=== PATIENT | male | born 1935 | race Caucasian/White ===

== ENCOUNTER → 2018-06-29 | Outpatient (CLI) | payer MEDICARE | LOC: M RAD 13:02 | DX: C64.9 Malignant neoplasm of unspecified kidney, except renal pelvis (principal); C78.02 Secondary malignant neoplasm of left lung; C78.01 Secondary malignant neoplasm of right lung | CPT/HCPCS: 71250 ==

== ENCOUNTER → 2018-08-21 | Outpatient (REF) | payer MEDICARE ==
[~2018-08-21] MED LIST: ALLO10TA PO; ATOR1TAB21 PO; FOLI1TAB11 PO; FURO40TA2 PO; LISI2.5T5 PO; METO1TAB32 PO; PANT-23 PO; XARE15TA PO
[2018-08-21 13:01] LABS: APPEARANCE, URINE CLEAR (CLEAR); BACTERIA, URINE AUTO NEGATIVE (NEGATIVE); BILIRUBIN, URINE AUTO NEGATIVE (NEGATIVE); BLOOD, URINE BLOOD NEGATIVE (NEGATIVE); COLOR, URINE STRAW (YELLOW); GLUCOSE, URINE (UA) AUTO NEGATIVE (NEGATIVE); KETONE, URINE AUTO NEGATIVE (NEGATIVE); LEUKOCYTE ESTERASE, URINE AUTO NEGATIVE (NEGATIVE); NITRITE, URINE AUTO NEGATIVE (NEGATIVE); PROTEIN, URINE AUTO NEGATIVE (NEGATIVE); RBC, URINE AUTO 0 /HPF (0-3); SPECIFIC GRAVITY URINE AUTO 1.005 (1.002-1.035); SQUAMOUS EPITHELIAL CELL UR AU 0 /HPF (0-6); UROBILINOGEN, URINE AUTO 0.2 mg/dL (0.0-2.0); WBC, URINE AUTO 0 /HPF (0-3)
[2018-08-21 13:13] LABS: BASO # 0.1 10^3/uL (0.0-0.2); BASO % 0.6 % (0.0-1.0); EOS # 0.1 10^3/uL (0.0-0.50); EOS % 1.6 % (0.0-3.0); HEMATOCRIT 39.2 % (42.0-52.0); HEMOGLOBIN 12.7 g/dl (13.5-17.5); LYMPH # 0.6 10^3/uL (1.5-4.5); MEAN CORPUSCULAR HEMOGLOBIN 33.2 pg (27.0-33.0); MEAN CORPUSCULAR HGB CONC 32.4 g/dl (32.0-36.5); MEAN CORPUSCULAR VOLUME 102.3 fl (80.0-96.0); MONO # 0.7 10^3/uL (0.0-0.8); MONO % 7.8 % (0.0-5.0); NEUTROPHILS # 7.4 10^3/uL (1.8-7.7); NEUTROPHILS % 82.7 % (36.0-66.0); PLATELET COUNT, AUTOMATED 225 10^3/uL (150-450); RED BLOOD COUNT 3.83 10^6/uL (4.30-6.10); WHITE BLOOD COUNT 8.9 10^3/uL (4.0-10.0)
[2018-08-21 13:40] LABS: ALBUMIN 3.7 GM/DL (3.2-5.2); ALT/SGPT 22 U/L (12-78); BILIRUBIN,TOTAL 0.6 MG/DL (0.2-1.0); BLOOD UREA NITROGEN 33 MG/DL (7-18); CALCIUM LEVEL 8.9 MG/DL (8.8-10.2); CARBON DIOXIDE LEVEL 32 MEQ/L (21-32); CHLORIDE LEVEL 100 MEQ/L (98-107); CHOLESTEROL LEVEL 149 MG/DL (<200); CREATININE FOR GFR 1.67 MG/DL (0.70-1.30); FERRITIN 120 NG/ML (26-388); FOLATE > 24.0 NG/ML; FREE T4 0.79 NG/DL (0.76-1.46); GLOMERULAR FILTRATION RATE 41.9 (>35); GLUCOSE, FASTING 90 MG/DL (70-100); HDL CHOLESTEROL 49 MG/DL (>40); IRON (FE) 54 UG/DL (65-175); LDL CHOLESTEROL 85 MG/DL (<100); MAGNESIUM LEVEL 2.3 MG/DL (1.8-2.4); NON-HDL-C 100 MG/DL; PERCENT SATURATION 19.5 % (19.7-50.0); POTASSIUM SERUM 4.7 MEQ/L (3.5-5.1); SODIUM LEVEL 138 MEQ/L (136-145); TOTAL 25(OH) VITAMIN D 23.1 NG/ML (30.0-100.0); TOTAL IRON BINDING CAPACITY 277 UG/DL (250-450); TOTAL PROTEIN 7.3 GM/DL (6.4-8.2); TRIGLYCERIDES LEVEL 76 MG/DL (<150); VITAMIN B12 LEVEL 541 PG/ML
[2018-08-21 14:06] LABS: CREATININE, URINE < 13.0 MG/DL; MALB URINE SIEMENS 5.9 MG/L
== END ==
LOC: M SFHCADAM 10:54
PROVIDERS: ATTEND Physician Assistant Medical
DX: I25.810 Atherosclerosis of coronary artery bypass graft(s) without angina pectoris (principal); I11.9 Hypertensive heart disease without heart failure; C64.1 Malignant neoplasm of right kidney, except renal pelvis; R53.82 Chronic fatigue, unspecified
CPT/HCPCS: 80053; 80061; 81001; 82043; 82306; 82607; 82728; 82746; 83550; 83735; 84439; 84443; 85025; G0463

== ENCOUNTER → 2018-10-04 | Outpatient (CLI) | payer MEDICARE ==
--- NOTE | 2018-10-04 11:54 | REP ---
CT of the chest without IV contrast: Comparison is 06/29. On the . There are multiple lung nodules bilaterally, not significantly changed. There is a right pleural effusion, not significantly changed. There is a small left pleural effusion, unchanged. There is atelectasis of the right lower lobe adjacent to the effusion, not significantly changed. There are enlarged intestinal nodes, unchanged. There are no lytic, blastic or destructive skeletal changes. There is degenerative disc disease throughout the thoracic spine. Impression: No significant interval change. Electronically Signed by Grady Moody MD 10/04/2018 11:45 A
--- NOTE | 2018-10-04 12:11 | REP ---
CT of the abdomen pelvis without IV or bowel contrast: Comparison is 06/29/2018. There is a small to moderate right pleural effusion, unchanged. There is atelectasis of the lower lobe of the right lung adjacent to the effusion. There is a small left pleural effusion, unchanged. There are numerous low density lesions throughout both right and left lobes of the liver compatible with metastases, not significantly changed. There are surgical clips in the gallbladder fossa, unchanged. The stomach, duodenal bulb and descending portion of the duodenal loop are dilated. This is unchanged. The transverse duodenum is nondilated. This is unchanged. These findings may represent stricture or adhesion of the descending limb of the duodenum. The unenhanced pancreas and spleen are unchanged. The right and left adrenals are unremarkable and unchanged. There is no identifiable right kidney. There are tiny high density high densities in the right renal fossa. These could surgical clips or possibly calcifications in a markedly atrophied right kidney. The appearance is unchanged. The unenhanced left kidney is unremarkable and unchanged. The abdominal aorta is tortuous but otherwise unremarkable. There is no retroperitoneal adenopathy or mass. The bowel and mesentery are otherwise unchanged and unremarkable. Pelvis: There are bilateral hip arthroplasties resulting in beam hardening and obscuration of the structures in the inferior pelvis. The bowel loops in the upper pelvis are unremarkable. No adenopathy is identified in the upper pelvis. Impression: Question adhesion/stricture in the descending loop of the duodenum as described, unchanged. Multiple hepatic metastases, unchanged. Findings in the right renal fossa that could represent nephrectomy for markedly atrophic right kidney. This is unchanged. Half There are no lytic, blastic or destructive skeletal changes. This is unchanged. There are bilateral pleural effusions, unchanged. There is atelectasis of the right lower lobe adjacent to the effusion, unchanged. Electronically Signed by Grady Moody MD 10/04/2018 12:01 P
== END ==
LOC: M RAD 10:23
PROVIDERS: ATTEND Internal Medicine Hematology & Oncology
DX: C64.9 Malignant neoplasm of unspecified kidney, except renal pelvis (principal); C78.7 Secondary malignant neoplasm of liver and intrahepatic bile duct; J90 Pleural effusion, not elsewhere classified; R91.8 Other nonspecific abnormal finding of lung field; M51.34 Other intervertebral disc degeneration, thoracic region; J98.11 Atelectasis

== ENCOUNTER → 2018-11-03 | Outpatient (CLI) | payer MEDICARE ==
[~2018-11-03] MED LIST changes: +LISI-1046 PO; -LISI2.5T5 PO
--- NOTE | 2018-11-03 12:47 | REP ---
Chest two views HISTORY: Cough Comparison: CT chest 10/04/2018 Multiple parenchymal nodules are present in the lungs. There is blunting of the right costophrenic angle due to a small pleural effusion. The cardiac silhouette is enlarged. The pulmonary vasculature is normal in appearance. The bony structures are osteopenic. IMPRESSION: 1. There are multiple parenchymal nodules in the lungs unchanged compared to the recent CT examination. 2. Small right pleural effusion decreased compared to the recent CT examination. Electronically Signed by Scar Cox MD 11/03/2018 12:38 P
== END ==
LOC: M ADAMS 09:03
PROVIDERS: ATTEND Physician Assistant Medical
DX: J98.4 Other disorders of lung (principal); J90 Pleural effusion, not elsewhere classified; R05 Cough
CPT/HCPCS: 71046; G0463

== ENCOUNTER → 2018-11-24 | Outpatient (REF) | payer MEDICARE ==
[2018-11-24 19:34] LABS: BASO % 0.4 % (0.0-1.0); EOS # 0.2 10^3/uL (0.0-0.50); EOS % 2.1 % (0.0-3.0); HEMATOCRIT 39.5 % (42.0-52.0); HEMOGLOBIN 12.5 g/dl (13.5-17.5); LYMPH # 0.7 10^3/uL (1.5-4.5); LYMPH % 9.5 % (24.0-44.0); MEAN CORPUSCULAR HGB CONC 31.6 g/dl (32.0-36.5); MONO # 0.7 10^3/uL (0.0-0.8); MONO % 9.7 % (0.0-5.0); NEUTROPHILS # 5.5 10^3/uL (1.8-7.7); PLATELET COUNT, AUTOMATED 199 10^3/uL (150-450); RED BLOOD COUNT 3.91 10^6/uL (4.30-6.10); WHITE BLOOD COUNT 7.1 10^3/uL (4.0-10.0)
[2018-11-24 20:56] LABS: ALBUMIN 3.7 GM/DL (3.2-5.2); BILIRUBIN,TOTAL 0.7 MG/DL (0.2-1.0); CALCIUM LEVEL 8.9 MG/DL (8.8-10.2); CREATININE FOR GFR 1.45 MG/DL (0.70-1.30); FREE T4 1.15 NG/DL (0.76-1.46); GLOMERULAR FILTRATION RATE 49.2 (>35); POTASSIUM SERUM 4.5 MEQ/L (3.5-5.1); THYROID STIMULATING HORMONE 4.37 uIU/ML (0.358-3.740)
== END ==
LOC: M SFHCADAM 15:57
PROVIDERS: ATTEND Physician Assistant Medical
DX: E03.9 Hypothyroidism, unspecified (principal); I25.810 Atherosclerosis of coronary artery bypass graft(s) without angina pectoris; I48.2 Chronic atrial fibrillation; I35.0 Nonrheumatic aortic (valve) stenosis
CPT/HCPCS: 80053; 84439; 84443; 85025; G0463

== ENCOUNTER → 2019-01-26 | Outpatient (CLI) | payer MEDICARE ==
[~2019-01-26] MED LIST changes: +LEVO25TA5 PO
--- NOTE | 2019-01-26 14:48 | REP ---
CT CHEST WITHOUT IV CONTRAST: CT chest performed without IV contrast. Sagittal and coronal reconstruction images are performed. Comparison made with prior studies, most recently 10/04/2018. Once again, there are multiple bilateral pulmonary nodules present. The vast majority have remained stable in size. One small nodule in the right upper lobe has slightly increased in size. Approximately six of the left lower lobe nodules have slightly increased in size. Consolidative opacity in the inferior aspect of the right lower lobe is essentially stable. There is mild mucus material in the right mainstem bronchus, which has improved. There is a stable small right pleural effusion. Several small subcentimeter mediastinal lymph nodes are stable. There is no pericardial effusion. There is atherosclerotic calcification of the thoracic aorta with mild dilatation of the ascending thoracic aorta at 4.2 cm, unchanged. There is mild cardiomegaly. IMPRESSION: Multiple bilateral pulmonary nodules have, for the most part, remained stable. One right upper lobe nodule and approximately six left lower lobe nodules have slightly increased in size. There is stable consolidative opacity in the right lower lobe as well as a stable small right pleural effusion. Electronically Signed by Grady Pulido MD 01/26/2019 07:34 P
--- NOTE | 2019-01-26 15:07 | REP ---
CT ABDOMEN AND PELVIS WITHOUT CONTRAST: CT abdomen and pelvis performed without oral or IV contrast. Sagittal and coronal reconstruction images performed. Comparison made with prior study of 10/04/2018. The liver demonstrates multiple innumerable nodules which have increased in size since the prior study, some becoming confluent, particularly in the posterior right lobe of the liver. The patient has had a prior cholecystectomy. The spleen is grossly unremarkable. The adrenal glands are thickened and unchanged. The pancreas is grossly unremarkable. The left kidney is grossly unremarkable. Ill-defined soft tissue is seen in the right renal fossa extending into the right paravertebral soft tissues, unchanged. No adenopathy is seen. No bowel wall thickening is seen. There is no free air or free fluid. There is sigmoid diverticulosis without acute diverticulitis. Diverticula are also seen extending throughout the left colon. There is no gross pelvic mass, but the evaluation of the pelvic structures due to steak artifact from bilateral metallic hip prostheses. No definite bone lesion is seen of the visualized osseous structures. IMPRESSION: Increased number and size of multiple metastatic nodules throughout the liver. No change in ill-defined soft tissue density in the right renal fossa extending into the right paravertebral soft tissues. No other new findings. Electronically Signed by Grady Pulido MD 01/26/2019 07:35 P
== END ==
LOC: M RAD 13:26
PROVIDERS: ATTEND Internal Medicine Hematology & Oncology
DX: C64.1 Malignant neoplasm of right kidney, except renal pelvis (principal)

== ENCOUNTER → 2019-02-01 | Outpatient (REF) | payer MEDICARE ==
[2019-02-01 12:43] LABS: BASO % 0.4 % (0.0-1.0); EOS # 0.1 10^3/uL (0.0-0.50); EOS % 0.9 % (0.0-3.0); HEMATOCRIT 41.4 % (42.0-52.0); HEMOGLOBIN 13.3 g/dl (13.5-17.5); LYMPH # 0.8 10^3/uL (1.5-4.5); LYMPH % 7.7 % (24.0-44.0); MEAN CORPUSCULAR HGB CONC 32.1 g/dl (32.0-36.5); MEAN CORPUSCULAR VOLUME 99.8 fl (80.0-96.0); MONO % 9.8 % (0.0-5.0); NEUTROPHILS % 80.9 % (36.0-66.0); PLATELET COUNT, AUTOMATED 206 10^3/uL (150-450); RED BLOOD COUNT 4.15 10^6/uL (4.30-6.10); WHITE BLOOD COUNT 9.8 10^3/uL (4.0-10.0)
== END ==
LOC: M SFHCPLAZ 11:16
PROVIDERS: ATTEND Physician Assistant Medical
DX: R53.82 Chronic fatigue, unspecified (principal)

== ENCOUNTER 2019-02-23 11:33 | Emergency (ER) | payer MEDICARE ==
[~2019-02-23] VITALS: Ht 175.3 cm; Wt 74.5 kg
[2019-02-23] MEDS ORDERED: CITA10TA5 (11:54)
[2019-02-23 12:57] LABS: INR 2.3; PROTHROMBIN TIME 25.1 SECONDS (11.8-14.0)
[2019-02-23 13:02] LABS: BASO % 0.4 % (0.0-1.0); EOS # 0.2 10^3/uL (0.0-0.50); EOS % 1.8 % (0.0-3.0); HEMATOCRIT 40.7 % (42.0-52.0); LYMPH # 0.5 10^3/uL (1.5-4.5); LYMPH % 6.3 % (24.0-44.0); MEAN CORPUSCULAR HEMOGLOBIN 32.5 pg (27.0-33.0); MEAN CORPUSCULAR HGB CONC 31.9 g/dl (32.0-36.5); MEAN CORPUSCULAR VOLUME 101.8 fl (80.0-96.0); MONO # 0.7 10^3/uL (0.0-0.8); MONO % 8.2 % (0.0-5.0); NEUTROPHILS % 83.1 % (36.0-66.0); PLATELET COUNT, AUTOMATED 186 10^3/uL (150-450); WHITE BLOOD COUNT 8.5 10^3/uL (4.0-10.0)
[2019-02-23 13:13] LABS: ALBUMIN 3.5 GM/DL (3.2-5.2); BILIRUBIN,DIRECT 0.3 MG/DL (0.0-0.2); BILIRUBIN,TOTAL 0.8 MG/DL (0.2-1.0); CALCIUM LEVEL 8.4 MG/DL (8.8-10.2); CK-MB VALUE MASS 1.8 NG/ML (<3.6); CREATININE FOR GFR 1.67 MG/DL (0.70-1.30); GLOMERULAR FILTRATION RATE 41.8 (>35); MB/CK RELATIVE INDEX 4.74 (< OR =4); THYROID STIMULATING HORMONE 3.3 uIU/ML (0.358-3.740); TOTAL PROTEIN 7.3 GM/DL (6.4-8.2); TROPONIN I 0.17 NG/ML (< 0.10)
--- NOTE | 2019-02-23 13:35 | REP ---
CHEST X-RAY: TWO VIEWS. HISTORY: Dyspnea and cough. COMPARISON STUDY: November 03, 2018. Patient has a history of renal cell carcinoma with multiple pulmonary metastatic nodules. FINDINGS: Innumerable pulmonary nodules are seen throughout the lung rucker. These appear to be more numerous and some are a little larger than on the October 2018 study. There is right pleural effusion which is essentially unchanged. Cardiomegaly is observed. Prior sternotomy wires are seen. No bony destructive lesion is appreciated. IMPRESSION: Innumerable metastatic pulmonary nodules throughout both lung rucker. These are probably slightly more numerous. A few appear to be larger. Small right pleural effusion unchanged. Cardiomegaly. Electronically Signed by Bj Diaz MD 02/23/2019 08:09 P
--- NOTE | 2019-02-23 15:04 | REP ---
CT CHEST WITHOUT IV CONTRAST: CT chest performed without IV contrast. Comparison 01/26/2019. Multiple bilateral pulmonary nodules are essentially unchanged. Consolidative opacity in the right lower lobe also appears essentially unchanged. There is an adjacent small right pleural effusion which is stable. Heart is mildly enlarged. There is no pericardial effusion. Multiple small mediastinal lymph nodes are unchanged. Multiple liver metastases are again seen, not definitely changed. Ill-defined soft tissue in the region of the right kidney is unchanged. There is left adrenal gland thickening which is stable. IMPRESSION: No change in multiple bilateral pulmonary nodules when compared to prior CT of 01/26/2019. There is also no change in the consolidative opacity in the right lower lobe and small adjacent right effusion. Electronically Signed by Grady Pulido MD 02/26/2019 01:05 P
[2019-02-23 15:45] VITALS: BP 158/80
--- NOTE | 2019-02-23 20:40 | ECGEPIP ---
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
--- NOTE | 2019-02-23 21:14 | ED PDOC ---
Post-Departure Follow-Up uzma browne and dr megan mosqueda faxed formal report of cxr for fu Eula Nix MD Feb 23, 2019 21:14
== END 2019-02-23 16:32 | disposition home or self-care (01) ==
LOC: M ED 11:33
DX: R60.9 Edema, unspecified (principal); C64.9 Malignant neoplasm of unspecified kidney, except renal pelvis; R06.02 Shortness of breath; N18.3 Chronic kidney disease, stage 3 (moderate); J44.9 Chronic obstructive pulmonary disease, unspecified; I48.91 Unspecified atrial fibrillation; Z86.711 Personal history of pulmonary embolism; Z86.73 Personal history of transient ischemic attack (TIA), and cerebral infarction without residual deficits; Z79.899 Other long term (current) drug therapy; Z79.01 Long term (current) use of anticoagulants